=== PATIENT | male | born 1950 | race Caucasian/White ===

== ENCOUNTER 2023-10-13 14:10 | Emergency (ER) | payer MEDICARE, OTHER ==
[~2023-10-13] VITALS: Ht 185.4 cm; Wt 134.6 kg
[2023-10-13 16:18] VITALS: BP 117/79; TEMP 98.5; O2SAT 97
[2023-10-13] MEDS ORDERED: CLEO300C2 PO (16:44)
[2023-10-13] MEDS: CLINDAMYCIN 150MG CAPSULE PO ONE (16:52)
[2023-10-13] MEDS ORDERED: MUCI1TAB18 PO (16:54)
[2023-10-13] MEDS ORDERED: CVS5000S2 PO (16:54)
[2023-10-13] MEDS ORDERED: OMEP40CA4 PO (16:55)
[2023-10-13] MEDS ORDERED: WARF-23 PO (16:56)
[2023-10-13] MEDS ORDERED: WARF-21 PO (16:58)
[2023-10-13] MEDS ORDERED: ATOR1TAB21 PO (16:58)
[2023-10-13] MEDS ORDERED: DILT30TA PO (16:58)
[2023-10-13] MEDS ORDERED: SOTA120T31 PO (16:58)
== END 2023-10-13 17:11 | disposition home or self-care (01) ==
LOC: M ED 14:10
DX: L03.113 Cellulitis of right upper limb (principal); L66.2 Folliculitis decalvans; I48.91 Unspecified atrial fibrillation; Z85.46 Personal history of malignant neoplasm of prostate; Z87.442 Personal history of urinary calculi; Z88.8 Allergy status to other drugs, medicaments and biological substances; Z79.2 Long term (current) use of antibiotics; Z79.899 Other long term (current) drug therapy